=== PATIENT | female | born 1995 | race Native Hawaiian/Other Pacific Islander ===

== ENCOUNTER 2017-05-26 16:40 | Emergency (ER) | payer SELFPAY ==
[~2017-05-26] VITALS: Ht 165.1 cm; Wt 61.4 kg
[2017-05-26] MEDS ORDERED: IBUPROFEN 800 MG TABLET PO ONE (16:45)
[2017-05-26 18:45] VITALS: BP 124/81
== END 2017-05-26 18:57 | disposition home or self-care (01) ==
LOC: EMS 16:42
DX: S23.41XA Sprain of ribs, initial encounter (principal); F12.90 Cannabis use, unspecified, uncomplicated; X58.XXXA Exposure to other specified factors, initial encounter; Y93.89 Activity, other specified; Y92.89 Other specified places as the place of occurrence of the external cause; Y99.8 Other external cause status
CPT/HCPCS: 93005; 99283